=== PATIENT | male | born 1965 | race Caucasian/White ===

== ENCOUNTER 2022-05-05 10:14 | Emergency (ER) | payer MEDICAID ==
[~2022-05-05] VITALS: Ht 172.7 cm; Wt 60.0 kg
[2022-05-05 10:17] VITALS: BP 107/67
[2022-05-05] MEDS ORDERED: ACETAMINOPHEN 325MG TABLET PO ONE (12:30)
== END 2022-05-05 15:59 | disposition home or self-care (01) ==
LOC: ER 10:40
DX: M79.605 Pain in left leg (principal); F10.129 Alcohol abuse with intoxication, unspecified; Z59.00 Homelessness unspecified; Y90.9 Presence of alcohol in blood, level not specified
CPT/HCPCS: 73590; 99283

== ENCOUNTER 2022-05-05 19:12 | Emergency (ER) | payer MEDICAID ==
[~2022-05-05] VITALS: Ht 165.1 cm; Wt 54.4 kg
[2022-05-05 19:42] VITALS: BP 111/72
[2022-05-05] MEDS ORDERED: ACETAMINOPHEN 325MG TABLET PO ONE (21:00)
[2022-05-05] MEDS ORDERED: SODIUM CHLORIDE 0.9% 1,000 ML IV ONE (21:45)
[2022-05-05 22:22] LABS: CHLORIDE 111 mEq/L (98-107)
[2022-05-05 22:33] LABS: BASOPHILS % 0.7 % (0.0-2.0); HEMATOCRIT. 38.4 % (42.0-52.0); HEMOGLOBIN. 12.8 g/dL (14.0-18.0); LYMPHOCYTES % 37.5 % (20.0-50.0); MEAN CORPUSCULAR HEMOGLOBIN 30.7 pg (28.0-32.0); MEAN CORPUSCULAR VOLUME 92.3 fL (80.0-94.0); MEAN PLATELET VOLUME 8.7 fl (7.4-10.4); MONOCYTES % 12.2 % (2.0-8.0); NEUTROPHILS % 44.6 % (40.0-76.0); PLATELET 206 x1000/uL (130-400); RED BLOOD CELL COUNT 4.16 mill/uL (4.7-6.1); RED CELL DISTRIBUTION WIDTH 14.6 % (11.6-14.6)
== END 2022-05-05 23:13 | disposition left against medical advice (07) ==
LOC: ER 19:12
DX: S81.802A Unspecified open wound, left lower leg, initial encounter (principal); Z86.59 Personal history of other mental and behavioral disorders; X58.XXXA Exposure to other specified factors, initial encounter; Y93.89 Activity, other specified; Y92.89 Other specified places as the place of occurrence of the external cause; Y99.8 Other external cause status
CPT/HCPCS: 36415; 80053; 83605; 85025; 99283; J7030